=== PATIENT | female | born 1970 | race Caucasian/White ===

== ENCOUNTER 2016-09-23 18:10 | Emergency (ER) | payer OTHER ==
[2016-09-23 19:38] VITALS: BP 142/91
[2016-09-23 22:13] LABS: Hematocrit 39 % (35-47); Mean Corpuscular HGB Conc 34 g/dl (31-36); Mean Corpuscular Hemoglobin 31 pg (27-31); Mean Corpuscular Volume 90 fL (80-97); Mean Platelet Volume 9 um3 (7.4-10.4); Red Blood Count 4.27 10^6/ul (4.0-5.4); Red Cell Distribution Width 12 % (10.5-15); White Blood Count 6.4 10^3/ul (3.5-10.8)
[2016-09-23 22:24] LABS: Albumin 4.3 g/dL (3.2-5.2); BUN/Creatinine Ratio 19.5 (8-20); Calcium 9.3 mg/dL (8.6-10.3); EGFR African American 104.7 (>60); EGFR Non-African American 81.4 (>60); Globulin 2.6 g/dL (2-4); Potassium 3.5 mmol/L (3.5-5.0); Total Bilirubin 0.6 mg/dL (0.2-1.0); Total Protein 6.9 g/dL (6.4-8.9)
--- NOTE | 2016-09-23 22:35 | ED ---
Papito Frey Salem, scribed for Sean Singh MD on 09/23/16 at 2131 . HPI Chest Pain - HPI Summary HPI Summary: Patient is a 46 y/o female who presents to the ED with intermittent chest pain for a few weeks, but worse today. She reports pain has been constant and radiating down her left arm. She states she saw her PCP earlier today and had labs done and an EKG taken, but not a CXR. She explains pain has become more severe and has continued to radiate down her arm since seeing PCP. Pt is on medication for RA and is concerned about taking ASA. - History of Current Complaint Chief Complaint: EDChestPainROMI Time Seen by Provider: 09/23/16 21:27 Hx Obtained From: Patient Onset/Duration: Started Weeks Ago Timing: Constant - Today., Intermittent - Over the few weeks., Lasting Hours Initial Severity: Moderate Current Severity: Moderate Pain Intensity: 7 Pain Scale Used: 0-10 Numeric Chest Pain Location: Diffuse Chest Pain Radiates: Yes Chest Pain Radiates To:: Arm - Left. Aggravating Factor(s): Nothing Alleviating Factor(s): Nothing Associated Signs and Symptoms: Positive: Negative - Allergy/Home Medications Allergies/Adverse Reactions: Allergies Allergy/AdvReac Type Severity Reaction Status Date / Time percocet Allergy Severe Hives Uncoded 09/23/16 18:14 PMH/Surg Hx/FS Hx/Imm Hx Endocrine/Hematology History: Reports: Hx Thyroid Disease - Hypothyroid Denies: Hx Diabetes Cardiovascular History: Reports: Hx Hypertension - during Respiratory History: Denies: Hx Asthma, Hx Chronic Obstructive Pulmonary Disease (COPD) GI History: Denies: Hx Ulcer Musculoskeletal History: Reports: Hx Rheumatoid Arthritis - Surgical History Surgery Procedure, Year, and Place: 2 c sections, appendectomy 10/2011 Infectious Disease History: No Infectious Disease History: Denies: Hx Hepatitis, Hx Human Immunodeficiency Virus (HIV), History Other Infectious Disease, Traveled Outside the [place] in Last 30 Days - Family History Known Family History: Positive: Cardiac Disease - Father - 2 [place]. Mother - [place]. , Diabetes, Other - CVA. - Social History Alcohol Use: Occasionally Hx Substance Use: No Substance Use Type: Reports: None Smoking Status (MU): Former Smoker Type: Cigarettes Review of Systems Negative: Fever Positive: Chest Pain - radiates to left arm. All Other Systems Reviewed And Are Negative: Yes Physical Exam Triage Information Reviewed: Yes Vital Signs On Initial Exam: Initial Vitals Temp Pulse Resp BP Pulse Ox 98.4 F 80 16 162/98 100 09/23/16 18:14 09/23/16 18:14 09/23/16 18:14 09/23/16 18:14 09/23/16 18:14 Vital Signs Reviewed: Yes Appearance: Positive: Well-Appearing, Pain Distress - mild discomfort Skin: Positive: Warm Head/Face: Positive: Normal Head/Face Inspection Eyes: Positive: LEOBARDO ENT: Positive: Hearing grossly normal Neck: Positive: Supple Respiratory/Lung Sounds: Positive: Clear to Auscultation, Breath Sounds Present Cardiovascular: Positive: RRR Abdomen Description: Positive: Nontender, Soft Bowel Sounds: Positive: Present Musculoskeletal: Positive: Strength/ROM Intact Neurological: Positive: Sensory/Motor Intact, Alert, Oriented to Person Place, Time Diagnostics - Vital Signs Vital Signs Temp Pulse Resp BP Pulse Ox 09/23/16 19:36 97.3 F 85 15 142/91 09/23/16 18:14 98.4 F 80 16 162/98 100 - Laboratory Lab Results: Lab Results 09/23/16 09/23/16 Range/Units 21:40 21:40 WBC 6.4 (3.5-10.8) 10^3/ul RBC 4.27 (4.0-5.4) 10^6/ul Hgb 13.0 (12.0-16.0) g/dl Hct 39 (35-47) % MCV 90 (80-97) fL MCH 31 (27-31) pg MCHC 34 (31-36) g/dl RDW 12 (10.5-15) % Plt Count 238 (150-450) 10^3/ul MPV 9 (7.4-10.4) um3 Neut % (Auto) 45.4 (38-83) % Lymph % (Auto) 39.6 (25-47) % Liberty % (Auto) 11.8 H (1-9) % Eos % (Auto) 2.7 (0-6) % Baso % (Auto) 0.5 (0-2) % Absolute Neuts (auto) 2.9 (1.5-7.7) 10^3/ul Absolute Lymphs (auto) 2.5 (1.0-4.8) 10^3/ul Absolute Monos (auto) 0.8 (0-0.8) 10^3/ul Absolute Eos (auto) 0.2 (0-0.6) 10^3/ul Absolute Basos (auto) 0 (0-0.2) 10^3/ul Absolute Nucleated RBC 0 10^3/ul Nucleated RBC % 0.1 Sodium 136 (133-145) mmol/L Potassium 3.5 (3.5-5.0) mmol/L Chloride 103 (101-111) mmol/L Carbon Dioxide 26 (22-32) mmol/L Anion Gap 7 (2-11) mmol/L BUN 15 (6-24) mg/dL Creatinine 0.77 (0.51-0.95) mg/dL Est GFR ( Amer) 104.7 (>60) Est GFR (Non-Af Amer) 81.4 (>60) BUN/Creatinine Ratio 19.5 (8-20) Glucose 101 H (70-100) mg/dL Calcium 9.3 (8.6-10.3) mg/dL Total Bilirubin 0.60 (0.2-1.0) mg/dL AST 24 (13-39) U/L ALT 26 (7-52) U/L Alkaline Phosphatase 42 (34-104) U/L Troponin I 0.00 (<0.04) ng/mL Total Protein 6.9 (6.4-8.9) g/dL Albumin 4.3 (3.2-5.2) g/dL Globulin 2.6 (2-4) g/dL Albumin/Globulin Ratio 1.7 (1-3) Result Diagrams: 09/23/16 21:40 09/23/16 21:40 Lab Statement: Any lab studies that have been ordered have been reviewed, and results considered in the medical decision making process. - Radiology CXR Radiology Interpretation Completed By: Radiologist - IMPRESSION: No evidence for acute intrathoracic disease. - EKG 1820 EKG Interpretation: Sinus rhythm @ 80 bpm. Normal. Re-Evaluation - Re-Evaluation First Eval Change: Improved Chest Pain Course/Dx - Course Course Of Treatment: 46 y/o female who presents to the ED with CP. EKG and CXR were negative. Pt is stable and will be DC'd. - Diagnoses Provider Diagnoses: Chest pain Discharge - Discharge Plan Condition: Stable Disposition: HOME Patient Education Materials: Chest Pain (ED) Referrals: Desirae Vann MD [Primary Care Provider] - Additional Instructions: Follow up with PCP. The documentation as recorded by the Papito nix Salem accurately reflects the service I personally performed and the decisions made by me, Sean Singh MD.
--- NOTE | 2016-09-23 22:36 | RAD ---
INDICATION: Chest pain and LEFT arm pain for 2 weeks increasing today. Former tobacco use. COMPARISON: June 04, 2007 CT abdomen. TECHNIQUE: Dual energy PA and routine lateral views of the chest were obtained. REPORT: Clear lungs and pleural spaces. Negative for pneumothorax. The heart, pulmonary vasculature, and mediastinal contours are unremarkable. Unremarkable osseous structures and soft tissue contours. IMPRESSION: No evidence for acute intrathoracic disease.
== END 2016-09-23 23:18 | disposition home or self-care (01) ==
LOC: ED 18:10
DX: R07.9 Chest pain, unspecified (principal); Z87.891 Personal history of nicotine dependence
CPT/HCPCS: 36415; 71020; 80053; 84484; 85025; 85379; 93005; 99282

== ENCOUNTER 2016-11-25 10:04 | Emergency (ER) | payer OTHER ==
[2016-11-25 10:49] VITALS: BP 158/74
--- NOTE | 2016-11-25 11:05 | UC ---
Respiratory Complaint HPI - HPI Summary HPI Summary: Patient presents with a past medical history of rheumatoid arthritis, current on immunosuppressant medications. She presents to day with one week onset complaints of chest congestion, persistent cough. She states she also has ear pain, and chest heaviness. She states that she used her sons Xopenex with some relief last night. Denies fever, chills, chest pain, dyspnea, abdominal pain, N/V/D. - History of Current Complaint Hx Obtained From: Patient Hx Last Menstrual Period: 11/23/16 ?: No Onset/Duration: Lasting Days Character: Cough: Nonproductive Aggravating Factors: Recumbent Position Alleviating Factors: Bronchodilator, Upright Position, Spontaneous Resolution - Risk Factors Pulmonary Embolism Risk Factors: Negative <Margot Gaines - Last Filed: 11/25/16 11:05> <Socorro Tolbert - Last Filed: 11/25/16 11:36> - History of Current Complaint Chief Complaint: UCRespiratory Stated Complaint: COUGH EAR PAIN SORE THROAT Time Seen by Provider: 11/25/16 10:51 - Allergies/Home Medications Allergies/Adverse Reactions: Allergies Allergy/AdvReac Type Severity Reaction Status Date / Time percocet Allergy Severe Hives Uncoded 09/23/16 18:14 Home Medications: Home Medications Tocilizumab [Actemra] 11/25/16 [History] PMH/Surg Hx/FS Hx/Imm Hx - Additional Past Medical History Additional PMH: Rhematoid arthritis - Surgical History Surgical History: Yes Surgery Procedure, Year, and Place: 2 c sections, appendectomy 10/2011 - Family History Known Family History: Positive: Cardiac Disease - Father - 2 [place]. Mother - [place]. , Diabetes, Other - CVA. - Social History Alcohol Use: Occasionally Substance Use Type: None Smoking Status (MU): Former Smoker Type: Cigarettes When Did the Patient Quit Smoking/Using Tobacco: 2008 - Immunization History Most Recent Influenza Vaccination: 2012/2013 <Margot Gaines - Last Filed: 11/25/16 11:05> Review of Systems Constitutional: Fatigue Respiratory: Cough All Other Systems Reviewed And Are Negative: Yes <Margot Gaines - Last Filed: 11/25/16 11:05> Physical Exam Triage Information Reviewed: Yes Appearance: Ill-Appearing Vital Signs: Initial Vital Signs Temp 99.1 F 11/25/16 10:41 Pulse 95 11/25/16 10:41 Resp 18 11/25/16 10:41 BP 158/74 11/25/16 10:41 Pulse Ox 95 11/25/16 10:41 Vital Signs Reviewed: Yes ENT: Positive: Pharyngeal erythema Neck exam: Normal Respiratory Exam: Normal Respiratory: Positive: Decreased breath sounds, Rhonchi Cardiovascular Exam: Normal Abdominal Exam: Normal Musculoskeletal Exam: Normal Skin Exam: Normal <Margot Gaines - Last Filed: 11/25/16 11:05> Vital Signs: Initial Vital Signs Temp 99.1 F 11/25/16 10:41 Pulse 95 11/25/16 10:41 Resp 18 11/25/16 10:41 BP 158/74 11/25/16 10:41 Pulse Ox 95 11/25/16 10:41 <Socorro Tolbert - Last Filed: 11/25/16 11:36> UC Diagnostic Evaluation - Laboratory O2 Sat by Pulse Oximetry: 95 <Margot Gaines - Last Filed: 11/25/16 11:05> Respiratory Course/Dx - Course Course Of Treatment: Patient presents with a PMH of RA, and is on immunosupressant medication, which she held this week in responce to her URI, and couging. Today she has stable VS, and is no hypoix or tachycardic. She presents with bronchitis. And RX Azithrmycin, and albuterol. She is also going to hold her immunosupressant medications this week as well. If for any reason her symtpoms do not improve as anticipated she will f/u with PCP or return for re-evaluation. - Differential Dx/Diagnosis Differential Diagnosis/HQI/PQRI: Bronchitis Provider Diagnoses: Bronchitis <Margot Gaines - Last Filed: 11/25/16 11:05> Discharge <Margot Gaines - Last Filed: 11/25/16 11:05> <Socorro Tolbert - Last Filed: 11/25/16 11:36> - Discharge Plan Condition: Stable Disposition: HOME Prescriptions: Albuterol HFA INHALER* [Ventolin HFA Inhaler*] 1 puff INH Q4H PRN #1 mdi PRN Reason: coughing Azithromycin TAB* [Zithromax TAB (Z-NOE) 250 mg #6 tabs] 250 mg PO DAILY #6 tab Benzonatate CAP* [Tessalon 100 MG CAP*] 100 mg PO TID #14 cap Patient Education Materials: Acute Bronchitis (ED) Referrals: Desirae Vann MD [Primary Care Provider] - Attestation Statement User Type: Provider - I was available for consult. This patient was seen by the DOMINIQUE. The patient was not presented to, seen by, or examined by me. -Rosmery <Socorro Tolbert - Last Filed: 11/25/16 11:36>
== END 2016-11-25 11:08 | disposition home or self-care (01) ==
LOC: UCEAST 10:04
DX: J40 Bronchitis, not specified as acute or chronic (principal); M06.9 Rheumatoid arthritis, unspecified; Z87.891 Personal history of nicotine dependence
CPT/HCPCS: 99212; G0463